=== PATIENT | female | born 1945 | race Caucasian/White ===

== ENCOUNTER → 2016-06-14 | Outpatient (CLI) | payer MEDICARE, OTHER ==
[~2016-06-14] MED LIST: ADVIN25/60 INH; CALC500C70 PO; CMBIN INH; DIAZ5TAB3 PO; ENAL10TA PO; FLNIN NAE; HYDR25TA4 PO; MECL25TA2 PO; METH5TAB5 PO; METO1TAB31 PO; NITRSPR6 SL; NXM/40 PO; OXYC-164 PO; POLY335040 PO; PRIM50TA29 PO; RMCI IV; SIMV10TA2 PO; TRAZ50TA35 PO; TRIA0.1C20 TOP; WARF-280 PO
[2016-06-14 15:22] LABS: INR 1.6 (0.9-1.1); PROTHROMBIN TIME (PATIENT) 17.9 SECONDS (9.0-12.0)
== END | disposition home or self-care (01) ==
LOC: C.LABSPEC 13:47
PROVIDERS: ATTEND Family Medicine
DX: Z79.01 Long term (current) use of anticoagulants (principal); Z51.81 Encounter for therapeutic drug level monitoring

== ENCOUNTER 2017-02-17 11:56 | Emergency (ER) | payer MEDICARE, OTHER ==
[~2017-02-17 11:56] MED LIST changes: +METO-478 PO; -METO1TAB31 PO
[2017-02-17 12:13] VITALS: TEMP 37.1
[2017-02-17] MEDS ORDERED: ONDANSETRON INJ 2 MG/ML 2 ML VIAL IV STA (12:34)
[2017-02-17] MEDS ORDERED: MoRPHine SULFATE 4 MG/ML 1 ML CARP\\VIAL IV STA ×2 (12:34→14:21)
[2017-02-17 12:46] LABS: HEMATOCRIT 33.7 % (37-47); MEAN CELL VOLUME 103.7 fL (80-100); MEAN CORPUSCULAR HEMOGLOBIN 38.2 pg (25-34); MEAN CORPUSCULAR HGB CONC 36.8 g/dl (32-36); MEAN PLATELET VOLUME 11.3 fL (7.4-10.4); PLATELET COUNT 232 K/uL (130-400); RED BLOOD COUNT 3.25 M/uL (4.2-5.4); WHITE BLOOD COUNT 7.74 K/uL (4.8-10.8)
[2017-02-17 13:04] LABS: BASO % 0.4 %; BASO ABS # 0.03 K/uL (0-0.2); COMPLETE YES; ECHINOCYTES 1+; EOS % 1.7 %; IG% 0.3 %; LYMPH % 29.7 %; MONO % 11.2 %; NEUT % 56.7 %
[2017-02-17 13:10] LABS: ALB/GLOB RATIO 0.8 (0.9-2); ALKALINE PHOSPHATASE 65 U/L (45-117); ALT/SGPT 17 U/L (12-78); AST/SGOT 22 U/L (15-37); BLOOD UREA NITROGEN 7 mg/dl (7-18); BUN/CREATININE RATIO 8.8 (10-20); CALCIUM 8.2 mg/dl (8.5-10.1); CARBON DIOXIDE 23 mmol/L (21-32); CHLORIDE 113 mmol/L (98-107); CREATININE 0.79 mg/dl (0.60-1.20); GLUCOSE 64 mg/dl (70-99); POTASSIUM 4.8 mmol/L (3.5-5.1); SODIUM 142 mmol/L (136-145)
--- NOTE | 2017-02-17 13:15 | DIAGNOSTIC IMAGING REPORT ---
CHEST ONE VIEW PORTABLE CLINICAL HISTORY: Atypical chest pain COMPARISON STUDY: 07/18/2012 FINDINGS: The cardiac and mediastinal contours are normal. There is no evidence of focal pulmonary consolidation. There is no evidence of failure. No pleural effusions are visualized.[ There is a stable opacity at the level the left cardiophrenic angle, likely representing a combination of atelectatic change and fat pad. There are surgical clips within the left upper quadrant. IMPRESSION: No active disease in the chest. Electronically signed by: Chapin Joe M.D. 02/17/2017 1:14 PM Dictated Date/Time: 02/17/2017 1:13 PM
[2017-02-17] MEDS ORDERED: VITACAP26 PO (13:32)
[2017-02-17] MEDS ORDERED: ONDA4TAB46 PO (13:32)
[2017-02-17] MEDS ORDERED: ASPI81TA28 PO (13:32)
[2017-02-17] MEDS ORDERED: ROPI0.25 PO (13:32)
[2017-02-17] MEDS ORDERED: RABE20TA5 PO (13:32)
[2017-02-17] MEDS ORDERED: CYM/30 PO (13:32)
[2017-02-17] MEDS ORDERED: CYCL0.052 OP (13:32)
[2017-02-17] MEDS ORDERED: POTA10CA28 PO (13:32)
[2017-02-17] MEDS ORDERED: ALBINSX INH (13:32)
[2017-02-17] MEDS ORDERED: LCTX PO (13:32)
[2017-02-17] MEDS ORDERED: VLTG (13:32)
[2017-02-17] MEDS ORDERED: FURO-85 PO (13:32)
[2017-02-17] MEDS ORDERED: SULF500T35 PO (13:32)
[2017-02-17] MEDS ORDERED: MELA3TAB7 PO (13:32)
[2017-02-17] MEDS ORDERED: BACL10TA PO (13:32)
[2017-02-17] MEDS ORDERED: BNT/10 PO (13:32)
[2017-02-17] MEDS ORDERED: ATOR-24 PO (13:32)
[2017-02-17] MEDS ORDERED: METO-452 PO (13:32)
[2017-02-17] MEDS ORDERED: COLE1TAB PO (13:32)
[2017-02-17] MEDS ORDERED: TRMCR130WC (13:32)
[2017-02-17 14:07] LABS: PARTIAL THROMBOPLASTIN RATIO 0.9
[2017-02-17 14:20] LABS: INR 0.9 (0.9-1.1); PROTHROMBIN TIME (PATIENT) 10.1 SECONDS (9.0-12.0)
[2017-02-17 14:43] LABS: URINE APPEARANCE CLEAR (CLEAR); URINE COLOR DK YELLOW; URINE EPITHELIAL CELL AUTO >30 /lpf (0-5); URINE NITRITE NEG (NEG); URINE PH 5.5 (4.5-7.5); URINE SPECIFIC GRAVITY 1.025 (1.000-1.030); UROBILINOGEN NEG (NEG); ZZUR CULT IF INDIC CLEAN CATCH NO
[2017-02-17 14:49] LABS: MANUAL MICROSCOPIC REQUIRED? NO; REVIEW REQ? NO; URINE BILIRUBIN NEG (NEG)
[2017-02-17 15:42] VITALS: BP 141/79; PULSE 72; O2SAT 94
[2017-02-17] MEDS ORDERED: TRAMADOL HCL 50 MG HOME PACK PO ONE (16:00)
--- NOTE | 2017-02-17 20:16 | EMERGENCY ROOM VISIT NOTE ---
History Report prepared by Barbi: Jose Gutierrez Under the Supervision of: Dr. Anibal Casas M.D. First contact with patient: 12:26 Chief Complaint: ABDOMINAL PAIN Stated Complaint: ABDOMINAL PAIN History of Present Illness The patient is a 72 year old female who presents to the Emergency Room with complaints of constant right lower quadrant abdominal pain that started a couple of months ago. The patient rates her pain as a 10/10 in severity. She describes her pain as a burning sensation. The patient states that she feels a heavy sensation on her chest whenever the pain is exacerbated. The patient is accompanied by her who states that the patient went to the [facility] yesterday, but denies any pertinent findings. She reports that she has been to [facility] frequently and has had abdominal CTs, but still does not have any diagnosis. She reports that she is has an appointment March 06 to further evaluate her issues. The patient states that she recently had an esophageal dilation due to her troubles with swallowing. She reports that she ended up having an esophageal tear, but denies any bleeding or hospital stay due to this issue. The patient states that she has not been able to drink or eat much due to her loss of appetite and inability to swallow. She admits to a history of COPD and pulmonary emboli. The patient denies being on blood thinners currently , but admits she was on blood thinners due to her history of blood clots in her legs. She denies any burning sensation during urination, hematuria, and shortness of breath. Source of History: patient, spouse/significant other Onset: a couple of months ago Position: abdomen (RLQ) Symptom Intensity: 10/10 Quality: burning Timing: constant Associated Symptoms: + chest pain, No SOB, No urinary symptoms Review of Systems See HPI for pertinent positives & negatives. A total of 10 systems reviewed and were otherwise negative. Past Medical & Surgical Medical Problems: (1) Asthma (2) Chronic obstructive lung disease (3) Chronic shoulder pain (4) CVA (5) Deep venous thrombosis (6) fibromyalgia (7) Pulmonary embolism (8) Sarcoidosis Old medical records were reviewed. Nurse's notes were reviewed and I agree with. I have reviewed her old records from her recent visit at [facility]. She was actually inpatient until 2 days ago. She had a CAT scan of her abdomen 2 days ago which was normal. She also had a recent chest CT for PE as well as lower for ultrasound which apparently were also normal. Family History Patient reports no known family medical history. Social History Alcohol Use: none Marital Status: Housing Status: lives with family Current/Historical Medications Scheduled Aspirin (Aspirin Ec), 81 MG PO DAILY Atorvastatin (Lipitor), 40 MG PO DAILY Baclofen (Lioresal), 10 MG PO TID Calcium/Vitamin D (Os-Winston 500 Plus D), 1 TABLET PO BID Colestipol Hcl (Colestid), 2 GM PO BID Cyclosporine (Ophth) (Restasis), 1 DROP OP BID Duloxetine Hcl (Cymbalta), 30 MG PO DAILY Enalapril Maleate (Vasotec), 10 MG PO BID Furosemide (Lasix), 20 MG PO DAILY Lactobacillus Acidophilus (Lactinex), 1 TAB PO TID Melatonin-Pyridoxine (Melatonin), 2 TAB PO HS Metoprolol Succinate (Toprol Xl), 50 MG PO DAILY Potassium Chloride (Micro-K Ext Rel), 20 MEQ PO BID Rabeprazole Sodium (Aciphex), 20 MG PO BID Ropinirole (Requip), 0.25 MG PO HS Sulfasalazine (Sulfazine Ec), 1,000 MG PO BID Trazodone Hcl (Trazodone), 50 MG PO HS Vitamins C & E (Vitamin C), 1 CAP PO DAILY Scheduled PRN Albuterol Sulf (Albuterol Sulfate), 1 VIAL INH Q4 PRN for Wheezing Dicyclomine HCl (Dicyclomine HCl), 10 MG PO QID PRN for Pain Ondansetron Hcl (Zofran), 4 MG PO Q4 PRN for Nausea Miscellaneous Medications Diclofenac Sod (Voltaren) Triamcinolone Acet (Aristocort 0.1%) Allergies Coded Allergies: Clarithromycin (Unverified Allergy, Unknown, ., 02/17/17) Codeine (Verified Allergy, Unknown, unknown, 02/17/17) GMG Fentanyl (Verified Allergy, Unknown, UNKNOWN, 02/17/17) GMG Latex (Verified Allergy, Unknown, UNKNOWN, 02/17/17) GMG Meperidine (Verified Allergy, Unknown, UNKNOWN, 02/17/17) GMG Pregabalin (Verified Allergy, Unknown, ?, 02/17/17) Varenicline (Unverified Allergy, Unknown, ., 02/17/17) Physical Exam Vital Signs Date Time Temp Pulse Resp B/P (MAP) Pulse Ox O2 Delivery O2 Flow Rate FiO2 02/17/17 15:42 72 18 141/79 94 Room Air 02/17/17 13:54 68 18 178/94 99 Room Air 02/17/17 13:04 174/88 02/17/17 13:03 67 16 97 Room Air 02/17/17 12:13 37.1 70 18 167/95 98 Room Air 02/17/17 12:05 70 Physical Exam General: Chronically-ill appearing older female complaining of abdominal pain. HEENT: Normal cephalic atraumatic. Pupils are equal round and reactive to light. Extraocular movements are intact. Oropharynx is pink with moist mucous membranes. No swelling of the mouth lips or tongue. Neck: Supple with a midline trachea. No meningeal signs or stiffness, no JVD or bruits. No Stridor. Chest: Clear to auscultation bilaterally. No wheezes or rhonchi. No increased work of breathing. Heart: regular rate and rhythm. Abdomen: Soft, abdomen tender in right lower quadrant, nondistended without rebound guarding or rigidity. Extremities: No cyanosis or clubbing. Chronic lower extremity edema. No calf tenderness or assymetry Spine/Back. Non tender to palpation. No CVA tenderness Skin: Good turgor without rashes. Neurologic exam: Cranial nerves two through 12 are intact. Motor and sensation are intact and symmetrical throughout. Medical Decision & Procedures ER Provider Diagnostic Interpretation: Radiology results as stated below per my review and radiologist interpretation: CHEST ONE VIEW PORTABLE CLINICAL HISTORY: Atypical chest pain COMPARISON STUDY: 07/18/2012 FINDINGS: The cardiac and mediastinal contours are normal. There is no evidence of focal pulmonary consolidation. There is no evidence of failure. No pleural effusions are visualized.[ There is a stable opacity at the level the left cardiophrenic angle, likely representing a combination of atelectatic change and fat pad. There are surgical clips within the left upper quadrant. IMPRESSION: No active disease in the chest. Electronically signed by: Chapin Joe M.D. 02/17/2017 1:14 PM Dictated Date/Time: 02/17/2017 1:13 PM Laboratory Results 02/17/17 12:10 Red Blood Count 3.25, Mean Corpuscular Volume 103.7, Mean Corpuscular Hemoglobin 38.2, Mean Corpuscular Hemoglobin Concent 36.8, Mean Platelet Volume 11.3, Neutrophils (%) (Auto) 56.7, Lymphocytes (%) (Auto) 29.7, Monocytes (%) ( Auto) 11.2, Eosinophils (%) (Auto) 1.7, Basophils (%) (Auto) 0.4, Neutrophils # (Auto) 4.39, Lymphocytes # (Auto) 2.30, Monocytes # (Auto) 0.87, Eosinophils # ( Auto) 0.13, Basophils # (Auto) 0.03 02/17/17 12:10 Test 02/17/17 12:10 02/17/17 12:34 02/17/17 14:05 02/17/17 15:41 White Blood Count 7.74 K/uL (4.8-10.8) Red Blood Count 3.25 M/uL (4.2-5.4) Hemoglobin 12.4 g/dL (12.0-16.0) Hematocrit 33.7 % (37-47) Mean Corpuscular Volume 103.7 fL (80-100) Mean Corpuscular Hemoglobin 38.2 pg (25-34) Mean Corpuscular Hemoglobin Concent 36.8 g/dl (32-36) Platelet Count 232 K/uL (130-400) Mean Platelet Volume 11.3 fL (7.4-10.4) Neutrophils (%) (Auto) 56.7 % Lymphocytes (%) (Auto) 29.7 % Monocytes (%) (Auto) 11.2 % Eosinophils (%) (Auto) 1.7 % Basophils (%) (Auto) 0.4 % Neutrophils # (Auto) 4.39 K/uL (1.4-6.5) Lymphocytes # (Auto) 2.30 K/uL (1.2-3.4) Monocytes # (Auto) 0.87 K/uL (0.11-0.59) Eosinophils # (Auto) 0.13 K/uL (0-0.5) Basophils # (Auto) 0.03 K/uL (0-0.2) RDW Standard Deviation 57.9 fL (36.4-46.3) RDW Coefficient of Variation 17.0 % (11.5-14.5) Immature Granulocyte % (Auto) 0.3 % Immature Granulocyte # (Auto) 0.02 K/uL (0.00-0.02) Echinocytes 1+ Anion Gap 6.0 mmol/L (3-11) Estimated GFR () 85.5 Estimated GFR (Non- 73.7 BUN/Creatinine Ratio 8.8 (10-20) Calcium Level 8.2 mg/dl (8.5-10.1) Total Bilirubin 0.6 mg/dl (0.2-1) Aspartate Amino Transf (AST/SGOT) 22 U/L (15-37) Alanine Aminotransferase (ALT/SGPT) 17 U/L (12-78) Alkaline Phosphatase 65 U/L (45-117) Total Protein 5.8 gm/dl (6.4-8.2) Albumin 2.5 gm/dl (3.4-5.0) Globulin 3.3 gm/dl (2.5-4.0) Albumin/Globulin Ratio 0.8 (0.9-2) Lipase 50 U/L (73-393) Chemistry Specimen Hemolysis Prothrombin Time 10.1 SECONDS (9.0-12.0) Prothromb Time International Ratio 0.9 (0.9-1.1) Activated Partial Thromboplast Time 23.7 SECONDS (21.0-31.0) Partial Thromboplastin Ratio 0.9 Urine Color DK YELLOW Urine Appearance CLEAR (CLEAR) Urine pH 5.5 (4.5-7.5) Urine Specific [place] 1.025 (1.000-1.030) Urine Protein NEG (NEG) Urine Glucose (UA) NEG (NEG) Urine Ketones NEG (NEG) Urine Occult Blood NEG (NEG) Urine Nitrite NEG (NEG) Urine Bilirubin NEG (NEG) Urine Urobilinogen NEG (NEG) Urine Leukocyte Esterase SMALL (NEG) Urine WBC (Auto) 5-10 /hpf (0-5) Urine RBC (Auto) 0-4 /hpf (0-4) Urine Hyaline Casts (Auto) 1-5 /lpf (0-5) Urine Epithelial Cells (Auto) >30 /lpf (0-5) Urine Bacteria (Auto) NEG (NEG) Bedside Glucose 102 mg/dl (70-90) Laboratory studies as stated above per my review. Medications Administered Medications (Trade) Dose Ordered Sig/Citlaly Route Start Time Stop Time Status Last Admin Dose Admin Morphine Sulfate (MoRPHine SULFATE INJ) 4 mg NOW STAT IV 02/17/17 12:34 02/17/17 12:35 DC 02/17/17 13:00 4 MG Ondansetron HCl (Zofran Inj) 4 mg NOW STAT IV 02/17/17 12:34 02/17/17 12:35 DC 02/17/17 12:59 4 MG Morphine Sulfate (MoRPHine SULFATE INJ) 4 mg NOW STAT IV 02/17/17 14:21 02/17/17 14:22 DC 02/17/17 14:28 4 MG Tramadol HCl (Ultram Home Pack) 1 homepack UD ONCE PO 02/17/17 16:00 02/17/17 16:01 DC 02/17/17 16:22 1 HOMEPACK ECG Indication: abdominal pain Rate (beats per minute): 65 Rhythm: normal sinus Findings: other (Short CT interval, Poor R Wave Progression) Comparison ECG Date: 07/06/12 Change: no significant change ED Course 1226: Past medical records reviewed. The patient was evaluated in room C10, and a complete history and physical examination were performed. 1234: Ordered Zofran Injection 4 mg IV, Morphine Sulfate 4 mg IV. 1240: I reevaluated the patient and she is resting comfortably. The nurses were able to get a line in. 1335: I reevaluated the patient and she is more comfortable. I reviewed the patient's EMR and it showed that she was discharged two days ago from [facility] where she had a normal CT done. 1420: I reevaluated the patient and she is still in pain. I will order more pain medications. 1421: Ordered Morphine Sulfate 4 mg IV. 1525: I reevaluated the patient and she is resting comfortably. I am going to recheck her blood sugar. 1540: Upon reevaluation, the patient is doing well and her blood sugar was fine. I discussed the results and treatment plan with the patient. She verbalized agreement of the treatment plan. The patient was discharged home. Medical Decision Differentials include, but are not limited to; infection, appendicitis, colitis , acute exacerbation of chronic pain, UTI, electrolyte or metabolic abnormality , and aneurysm. This patient comes in as described above. She was placed in room C 10. She is complaining mostly right lower quadrant abdominal pain although has several other complaints. She has been hospitalized recently for this and reviewing her records, she's had chronic abdominal pain. There has been concern for narcotic abuse as well past. She denies any trauma or urinary symptoms at all. She's had no chest pain or shortness of breath. She did have her esophagus dilated within the last couple weeks. She was found to be hypoglycemic initially and drank some when she is and this resolved. She has no significant white count or fever to suggest infection she has no significant anemia. She has nothing to suggest UTI with a culture pending. She has no acute electrode or metabolic abnormalities. She received IV morphine as well as IV Zofran and is feeling much better. She did receive additional IV morphine. She was feeling much better. Chest x-ray was unremarkable. I do not find any acute surgical or infectious or traumatic reason for her pain she is asked for Ultram I have reviewed the PDMP and she has received 29 prescriptions in the last year. I told her that she needs to get her pain medicines or her regular doctor. I did give her a home pack to get her through till tomorrow but will not write her for prescription. She should follow up with her regular doctor. Return if: worsening symptoms, any new problems or concerns. Her blood sugars rechecked prior to discharge and it had improved but she is to ensure that she is drinking adequately at home. Patient and the were happy with the plan and she was discharged [place] Drug Monitoring Program Search Results: patient reviewed within database Drug Monitoring Findings: 29 prescriptions in the last year. I am concerned for overuse. Therefore, a prescription was not written. Medication Reconcilliation Current Medication List: was personally reviewed by me 29 prescriptions in the last year. Take concern for overuse. Therefore, prescription not written. Blood Pressure Screening Patient's blood pressure: Elevated blood pressure Blood pressure disposition: Referred to PCP Impression Primary Impression: RLQ abdominal pain Additional Impression: Hyperglycemia Scribe Attestation The scribe's documentation has been prepared under my direction and personally reviewed by me in its entirety. I confirm that the note above accurately reflects all work, treatment, procedures, and medical decision making performed by me. Departure Information Dispostion Home / Self-Care Referrals No Doctor, Assigned (PCP) Forms Call Back Authorization, HOME CARE DOCUMENTATION FORM, IMPORTANT VISIT INFORMATION Patient Instructions My [facility] Additional Instructions Rest Drink plenty of fluids REturn if: worsening of symptoms, fever, increasing pain, any new problems or concerns May use Tramadol 50 mg, 1-2 pills every 6 hours as needed Tramadol may make you drowsy and be careful getting up and down and do not take before drinking, driving, working Follow-up with your doctor tomorrow for recheck Problem Qualifiers
== END 2017-02-17 16:38 | disposition home or self-care (01) ==
LOC: EDBD 11:56 → C.EDC 11:57
DX: R10.31 Right lower quadrant pain (principal); R73.9 Hyperglycemia, unspecified; R07.9 Chest pain, unspecified; J44.9 Chronic obstructive pulmonary disease, unspecified; Z79.82 Long term (current) use of aspirin; Z79.899 Other long term (current) drug therapy; Z86.711 Personal history of pulmonary embolism; Z86.718 Personal history of other venous thrombosis and embolism; Z86.73 Personal history of transient ischemic attack (TIA), and cerebral infarction without residual deficits

== ENCOUNTER → 2017-03-06 | Outpatient (CLI) | payer MEDICARE ==
[~2017-03-06] MED LIST changes: -ADVIN25/60 INH; +ALBINSX INH; +ASPI81TA28 PO; +ATOR-24 PO; +BACL10TA PO; +BNT/10 PO; -CMBIN INH; +COLE1TAB PO; +CYCL0.052 OP; +CYM/30 PO; -DIAZ5TAB3 PO; -FLNIN NAE; +FURO-85 PO; -HYDR25TA4 PO; +LCTX PO; -MECL25TA2 PO; +MELA3TAB7 PO; -METH5TAB5 PO; +METO-452 PO; -METO-478 PO; -NITRSPR6 SL; -NXM/40 PO; +ONDA4TAB46 PO; -OXYC-164 PO; -POLY335040 PO; +POTA10CA28 PO; -PRIM50TA29 PO; +RABE20TA5 PO; -RMCI IV; +ROPI0.25 PO; -SIMV10TA2 PO; +SULF500T35 PO; -TRIA0.1C20 TOP; +TRMCR130WC; +VITACAP26 PO; +VLTG; -WARF-280 PO
[2017-03-06 12:44] LABS: BASO % 0.2 %; BASO ABS # 0.01 K/uL (0-0.2); EOS % 1.3 %; HEMATOCRIT 35.8 % (37-47); IG% 0.2 %; LYMPH % 22.4 %; LYMPH ABS # 1.35 K/uL (1.2-3.4); MEAN CELL VOLUME 112.2 fL (80-100); MEAN CORPUSCULAR HEMOGLOBIN 41.1 pg (25-34); MEAN CORPUSCULAR HGB CONC 36.6 g/dl (32-36); MEAN PLATELET VOLUME 11.1 fL (7.4-10.4); MONO % 15.6 %; NEUT % 60.3 %; PLATELET COUNT 157 K/uL (130-400); RED BLOOD COUNT 3.19 M/uL (4.2-5.4); WHITE BLOOD COUNT 6.04 K/uL (4.8-10.8)
[2017-03-06 13:27] LABS: ALB/GLOB RATIO 0.8 (0.9-2); ALKALINE PHOSPHATASE 70 U/L (45-117); ALT/SGPT 19 U/L (12-78); AST/SGOT 29 U/L (15-37); BLOOD UREA NITROGEN 9 mg/dl (7-18); BUN/CREATININE RATIO 11.9 (10-20); CALCIUM 8.4 mg/dl (8.5-10.1); CARBON DIOXIDE 25 mmol/L (21-32); CHLORIDE 110 mmol/L (98-107); CHOLESTEROL 86 mg/dl (0-200); CHOLESTEROL/HDL RATIO 1.3; CREATININE 0.78 mg/dl (0.60-1.20); GLUCOSE 83 mg/dl (70-99); HDL CHOLESTEROL 65 mg/dl; LDL CHOLESTEROL CALCULATED 3 mg/dl; POTASSIUM 4.8 mmol/L (3.5-5.1); SODIUM 141 mmol/L (136-145); TRIGLYCERIDES 88 mg/dl (0-150); VERY LOW DENSITY LIPOPROT CALC 18 mg/dl
[2017-03-06 13:29] LABS: ANISOCYTOSIS PRESENT; COMPLETE YES; ECHINOCYTES 1+; TOXIC GRANULATION 1+; VACUOLIZATION 1+
== END | disposition home or self-care (01) ==
LOC: C.LABMFLN 10:34
PROVIDERS: ATTEND Physician Assistant
DX: J42 Unspecified chronic bronchitis (principal); I10 Essential (primary) hypertension; E78.5 Hyperlipidemia, unspecified; E05.90 Thyrotoxicosis, unspecified without thyrotoxic crisis or storm; E87.1 Hypo-osmolality and hyponatremia; E87.6 Hypokalemia; M81.0 Age-related osteoporosis without current pathological fracture; E53.8 Deficiency of other specified B group vitamins

== ENCOUNTER → 2017-03-07 | Outpatient (CLI) | payer MEDICARE, OTHER ==
[2017-03-07 18:11] LABS: URINE APPEARANCE TURBID (CLEAR); URINE COLOR DK YELLOW; URINE EPITHELIAL CELL AUTO >30 /lpf (0-5); URINE NITRITE POS (NEG); UROBILINOGEN NEG (NEG)
[2017-03-07 18:22] LABS: URINE BILIRUBIN 2+ (NEG)
[2017-03-07 18:23] LABS: MANUAL MICROSCOPIC REQUIRED? NO; REVIEW REQ? YES
== END | disposition home or self-care (01) ==
LOC: C.LABMFLN 11:39
PROVIDERS: ATTEND Physician Assistant
DX: J42 Unspecified chronic bronchitis (principal); I10 Essential (primary) hypertension; E78.5 Hyperlipidemia, unspecified; E05.90 Thyrotoxicosis, unspecified without thyrotoxic crisis or storm; E87.1 Hypo-osmolality and hyponatremia; E87.6 Hypokalemia

== ENCOUNTER → 2017-03-08 | Outpatient (CLI) | payer MEDICARE, OTHER | END | disposition home or self-care (01) | LOC: C.LABMFLN 15:15 | PROVIDERS: ATTEND Physician Assistant | DX: N39.0 Urinary tract infection, site not specified (principal) ==